=== PATIENT | male | born 1965 | race Caucasian/White ===

== ENCOUNTER 2024-10-11 12:58 | Inpatient (IN) ==
--- NOTE | 2024-10-11 14:28 | Emergency Department Note ---
ED Provider Note History of Present Illness Chief Complaint: Dental/Oral Stated Complaint: ABSCESS TOOTH Time Seen by Provider: 10/11/24 13:50 59-year-old male who presents the emergency department with complaint of a dental infection. The patient reports that he has been dealing with pain from an impacted wisdom tooth for the past 2-1/2 weeks. He was seen this past weekend at the [facility] emergency department and had the "tooth cracked" with significant pus drainage. The patient reports that he was not admitted to their facility, and discharged with prescription for clindamycin. The patient reports that prior to his ER visit, he contacted and set up an appointment for Dr. Morales, who saw him yesterday in his office, and recommended that he come to the emergency department last evening for further imaging. The patient reports that he had other issues that he had to attend to last night, and presents today for further evaluation. The patient denies any fever or chills. He reports that it feels like the swelling is going into his neck, but denies any difficulty with swallowing. The patient reports that he is taking clindamycin 4 times daily as prescribed this past weekend. He currently rates his discomfort a 7 out of 10. Home Medications Medication Instructions Recorded Confirmed Type apixaban 5 mg tablet (Eliquis) 5 mg PO BID 10/10/24 10/11/24 History clopidogrel 75 mg tablet (Plavix) 75 mg PO DAILY 10/10/24 10/11/24 History dulaglutide 1.5 mg/0.5 mL 1.5 mg subcut WK 10/10/24 10/11/24 History subcutaneous pen injector (Trulicity) metformin 1,000 mg tablet 1,000 mg PO DAILY 10/10/24 10/11/24 History metoprolol succinate 25 mg 25 mg PO DAILY 10/10/24 10/11/24 History tablet,extended release 24 hr metronidazole 0.75 % topical gel 1 applic topical BID 10/10/24 10/11/24 History isosorbide mononitrate 30 mg 30 mg PO DAILY 10/11/24 10/11/24 History tablet,extended release 24 hr levothyroxine 200 mcg tablet 200 mcg PO QAM 10/11/24 10/11/24 History rosuvastatin 40 mg tablet 40 mg PO DAILY 10/11/24 10/11/24 History tamsulosin 0.4 mg capsule 0.4 mg PO DAILY 10/11/24 10/11/24 History valsartan 80 mg tablet 80 mg PO QAM 10/11/24 10/11/24 History Allergies Allergy/AdvReac Type Severity Reaction Status Date / Time ciprofloxacin Allergy Intermediate Hives Verified 10/10/24 09:46 codeine Allergy Intermediate Hives Verified 10/10/24 09:46 Penicillins Allergy Intermediate Hives Verified 10/10/24 09:46 latex Allergy Verified 10/10/24 09:13 promethazine AdvReac EXTREME Verified 10/10/24 09:13 FATIGUE- SLEPT FOR 3 DAYS Past Med/Surg History Problem List (Updated 10/11/24 @ 21:54 by Alejandro Mejía) Parotid abscess (Acute) Dental abscess (Acute) Anticoagulant long-term use Dental abscess Impacted teeth with abnormal position Parotid abscess Edentulism, complete Acute abscess of face BPH (benign prostatic hyperplasia) GERD (gastroesophageal reflux disease) Paroxysmal A-fib Coronary artery disease Hypothyroidism Hyperlipidemia Diabetes type 2 COPD (chronic obstructive pulmonary disease) Sleep apnea Hypertension Pain, dental Medical History Dental caries Thyroid disease Seizures Diabetes Cleft palate Heart attack Heart disease Asthma Surgical History Hx of hernia repair History of repair of congenital cleft palate Hx of heart artery stent x3 Family History Mother Breast cancer Hypertension Social History Smoking Status: Current every day smoker Tobacco Type: Cigarettes Age Started Using Tobacco: 15; Cigarettes Per Day: 1.5 packs; Preferred Language: Moroccan marital status: Single Current Living Situation: Significant Other current occupational status: employed current occupation: [employer] How many Children do You have: 1 Feels Safe at Home: Yes Diet: diabetic during the past year weight has: decreased > 10 lbs Assistive Devices: Glasses Physical Exam Vital Signs Vital Signs - 24 hr 10/11/24 13:18 10/11/24 14:53 Temperature 36.6 C Temperature Source Skin Pulse Rate 82 Pulse Rate [Finger] 71 Respiratory Rate 19 20 Respiratory Effort / Characteristics Non-Labored Spontaneous Non-Labored Spontaneous Respiratory Depth Normal Normal Respiratory Pattern Regular Blood Pressure 150/98 H Blood Pressure [Right Arm] 173/100 H Blood Pressure Mean 115 Blood Pressure Mean [Right Arm] 124 Pulse Oximetry 97 98 Oxygen Delivery Method Room Air Room Air Sepsis Recent Fever Within 48 Hours No Sepsis New/Unexplained Change in Mental Status N/A Sepsis Action Taken by Nursing No Action Required CONSTITUTIONAL: Healthy and well nourished. Patient does not appear in any acute distress. HEENT: Examination shows notable left facial edema about the left mandible region. Oropharyngeal examination does not show any obvious pointing or fluctuance. No evidence for Raoul's angina or retropharyngeal abscess. NECK: Minimal tenderness to palpation of the through the left submandibular region, without any induration or erythema extending onto the neck. LYMPHATICS: Mild submandibular and left cervical chain adenopathy. RESPIRATORY: Clear to auscultation bilaterally with no wheezing, crackles, rhonchi or stridor. CARDIOVASCULAR: Regular rate and rhythm with no murmurs, rubs or gallops. INTEGUMENTARY: No rash or other significant dermatologic conditions noted. HEMATOLOGIC: No ecchymosis or petechiae. PSYCHIATRIC: Positive affect. NEUROLOGIC: Facial sensations are intact. Course Course Patient history and physical exam were performed. Nursing notes were reviewed. Vital signs are reviewed, showing an elevated blood pressure. IV access was established, and labs are ordered and drawn. Patient was hydrated with a normal saline 500 cc bolus. He refused any analgesics. Review of labs shows a relatively normal CBC. CMP shows an elevated random glucose of 130, otherwise remaining electrolytes are normal. Patient does have an elevated PT and PTT with normal INR. Sed rate is also elevated. CT with IV contrast of the neck shows a large abscess within the left career resource technician space, with additional findings as discussed in the following radiologist report. Prior to the patient's workup being completed, I was advised by our ER marketing secretary that Dr. Morales called in earlier and wanted the patient admitted by the hospitalist service, and consult him for possible I&D procedure pending CT imaging. I then reached out to our [employer], as well as the [facility] hospitalist team (Dr. Baker). Please see the hospitalist and maxillofacial dictations for further treatment and final disposition. The patient was admitted in stable condition from our service. Administered Medications Hydromorphone HCl (Hydromorphone Inj 0.5 Mg/0.5 Ml Syr) 0.5 mg IV Q4H PRN PRN Reason: Mod-Sev Pain (Scale 4-10) Stop: 10/25/24 17:59 Last Admin: 10/11/24 19:10 Dose: 0.5 mg Documented By: JARON Heparin Sodium/Dextrose (Heparin 28089 Unit/500 Ml D5w) 25,000 units in 500 mls @ 28 mls/hr IV .[id number] [facility]; Protocol Stop: 10/12/24 05:00 Last Admin: 10/11/24 19:54 Dose: 1,400 units/hr, 28 mls/hr Documented By: ELIJAH Co-signed By: PAULA Lactated Ringer's (Lr) 1,000 mls @ 50 mls/hr IV .Q20H ONE Stop: 10/12/24 14:22 Last Admin: 10/11/24 19:53 Dose: 50 mls/hr Documented By: ELIJAH Insulin Aspart (Insulin Aspart Per Unit Charge) 0 units SC ACHS [facility] Stop: 11/10/24 18:59 Last Admin: 10/11/24 21:22 Dose: Not Given Documented By: ELIJAH Co-signed By: MPS Discontinued Medications Clindamycin Phosphate (Cleocin/D5w) 900 mg in 50 mls @ 100 mls/hr IV NOW ONE Stop: 10/11/24 14:45 Last Infusion: 10/11/24 15:23 Dose: Infused Documented By: Admin: 10/11/24 14:53 Dose: 100 mls/hr Documented By: KENTON Sodium Chloride (Nss) 500 mls @ 999 mls/hr IV .Q31M ONE Stop: 10/11/24 14:48 Last Infusion: 10/11/24 19:17 Dose: Infused Documented By: Admin: 10/11/24 14:52 Dose: 999 mls/hr Documented By: KENTON Ioversol (Optiray 320 100ml) 90 ml IV ONCE ONE Stop: 10/11/24 15:49 Last Admin: 10/11/24 15:48 Dose: 90 ml Documented By: LESLIE Morphine Sulfate (Morphine Sulfate 4 Mg/Ml 1 Ml Carp\\Vial) 4 mg IV NOW STA Stop: 10/11/24 15:25 Last Admin: 10/11/24 15:30 Dose: 4 mg Documented By: ABIGAIL Ondansetron HCl (Ondansetron Inj 2 Mg/Ml 2 Ml Vial) 4 mg IV NOW STA Stop: 10/11/24 15:25 Last Admin: 10/11/24 15:30 Dose: 4 mg Documented By: ABIGAIL Medical Decision Making Medical Records Attestation: I reviewed the patient's medical records. Home Medications was personally reviewed by me Laboratory Data Attestation: I reviewed the patient's lab results. 10/11/24 14:30 10/11/24 14:30 Lab Results 10/11/24 Range/Units 14:30 WBC 6.90 (4.8-10.8) K/ul RBC 4.74 (4.70-6.10) M/uL Hgb 13.8 L (14.0-18.0) g/dl Hct 39.5 L (42.0-52.0) % MCV 83.3 (80.0-100.0) fL MCH 29.1 (25.0-34.0) pg MCHC 34.9 (32.0-36.0) g/dL RDW Std Deviation 37.5 (36.4-46.3) fL RDW Coeff of Mai 12.3 (11.5-14.5) % Plt Count 232 (130-400) K/uL MPV 8.9 L (9.4-12.4) fL Immature Gran % (Auto) 0.3 % Neut % (Auto) 66.2 % Lymph % (Auto) 25.7 % [place] % (Auto) 6.4 % Eos % (Auto) 1.0 % Baso % (Auto) 0.4 % Neut # (Auto) 4.57 (1.40-6.50) K/uL Lymph # (Auto) 1.77 (1.20-3.40) K/uL [place] # (Auto) 0.44 (0.11-0.59) K/uL Eos # (Auto) 0.07 (0.00-0.50) K/uL Baso # (Auto) 0.03 (0.00-0.20) K/uL Immature Gran # (Auto) 0.02 (0.01-0.20) K/uL ESR 67 H (0-20) mm/hr Sodium 138 (136-145) mmol/L Potassium 3.5 (3.5-5.1) mmol/L Chloride 101 (98-107) mmol/L Carbon Dioxide 31 (21-32) mmol/L Anion Gap 6 (3-11) BUN 11 (6-23) mg/dl Creatinine 0.92 (0.6-1.4) mg/dl Est Cr Clr Drug Dosing 97.5 ml/min eGFR 97.02 BUN/Creatinine Ratio 12.0 (10-20) Glucose 130 H (70-99(Fasting)) mg/dl Calcium 9.9 (8.6-10.3) mg/dl Total Bilirubin 0.6 (0.2-1.0) mg/dl AST 19 (13-39) U/L ALT 11 (7-52) U/L Alkaline Phosphatase 78 (34-104) U/L Total Protein 8.5 H (6.0-8.3) gm/dl Albumin 4.1 (3.4-5.0) gm/dl Globulin 4.4 H (2.5-4.0) gm/dl Albumin/Globulin Ratio 0.9 (0.9-2) Imaging Data Attestation: I personally reviewed and interpreted this imaging study as follows: My Impression: My interpretation of a CT with IV contrast of the neck shows a large abscess within the left career resource technician space. Additional findings were also discussed in the following radiologist report, which was also reviewed with concurrence. Radiologist's Impression: Soft Tissue Neck CT 10/11/24 14:16 CT soft tissue neck w con HISTORY: 59 years-old Male L mandibular abscess soft tissue swelling with possible abscess within the left mandibular tissues COMPARISON: Head CT 09/25/2024 TECHNIQUE: Multiple axial CT images of the soft tissues of the neck were obtained with IV contrast. A dose lowering technique was used consistent with the principals of ALARA. FINDINGS: The imaged intracranial structures demonstrate no acute abnormality. Orbits are within normal limits. Atherosclerotic plaque of the carotid bulbs without high- grade stenosis. Chronic appearing deformities of the perinasal tissues, nasal septum and maxilla. Unerupted left mandibular molar with probable adjacent dentigerous cyst with areas of adjacent cortical dehiscence both medially and laterally. There is an additional unerupted right maxillary tooth on image 24 series 2. This also demonstrates adjacent dentigerous cyst formation. Asymmetric enlargement with heterogeneity of the left cemented glenoid with adjacent inflammatory stranding. No thyroid nodule identified. Cervical chain lymph nodes measure up to 8 mm. There is a 3.7 x 2.4 x 5.4 cm heterogeneously enhancing focus centered within the left parotid gland on image 33 series 2 with centrally hypodense components measuring up to approximately 2 cm. The medial margin abuts the adjacent mandible and there is adjacent inflammatory stranding involving the left parotid gland and career resource technician space. The lung apices appear clear. Multilevel degenerative changes of the cervical spine. Diffusely heterogeneous appearance of the bone marrow. Small right mastoid effusion. The left mastoid air cells are clear. No significant mucosal thickening of the paranasal sinuses. IMPRESSION: 1. Heterogeneous masslike enhancement centered within the left career resource technician space and parotid gland measures up to approximately 5 cm with central hypodense foci measuring up to approximately 2 cm. Findings favor phlegmon with central abscess however a centrally necrotic neoplasm could appear similarly. 2. The aforementioned collection/lesion abuts the lateral cortex of the mandibular body where there is in an unerupted maxillary molar with dentigerous cyst and adjacent cortical dehiscence. Findings should be correlated clinically to exclude developing osteomyelitis. 3. Reactive left parotid and submandibular sialoadenitis with subcentimeter cervical chain lymph nodes. ACT 112: Negative or not required by law. The above report was generated using voice recognition software. It may contain grammatical, syntax or spelling errors. Electronically signed by: Leobardo Arguello M.D. 10/11/2024 4:15 PM MDM Narrative See ED Course section for further details of today's visit. The patient presents for evaluation of left facial swelling and infection. The patient was seen yesterday by Dr. Morales, maxillofacial surgeon, who recommended that he come in last evening for CT imaging and lab work. The patient has had an infection developing over the past 2-1/2 weeks, and appears to have had some type of I&D procedure this past weekend without admission. The patient is currently on clindamycin antibiotics without any significant improvement, and with what the patient reports is a worsening infection. CT imaging today does show a large abscess within the left career resource technician space, with additional erosive findings within the mandible as discussed at the previous radiologist report. The case was discussed with Dr. Morales, who has requested hospitalist admission for IV antibiotics, and he will perform operative management. The patient does appear to be stable at this point. Impression Dental abscess, Parotid abscess Discharge Plan Visit Data Chief Complaint: Dental/Oral Stated Complaint: ABSCESS TOOTH ED Provider: [facility] ED Midlevel Provider: Alejandro Mejía Discharge Problem: Dental abscess, Parotid abscess Patient Disposition: Admitted As Inpatient Discharge Instructions Interventions: ED Discharge Assessment Last Done: 10/11/24 17:35
--- NOTE | 2024-10-11 14:51 | History & Physical Report ---
Date of Service October 11, 2024 Assessment & Plan (1) Dental abscess: (2) Diabetes type 2: (3) Coronary artery disease: (4) Paroxysmal A-fib: (5) Hypertension: (6) Hyperlipidemia: (7) Hypothyroidism: (8) COPD (chronic obstructive pulmonary disease): (9) GERD (gastroesophageal reflux disease): (10) BPH (benign prostatic hyperplasia): (11) Sleep apnea: Plan 59 year old male with PMH significant for DMII, hyperlipidemia, hypothyroidism, COPD, TOM, CAD/peripheral vascular disease, history of CO x4 with stent x3, PAF, HTN, GERD, BPH, history of TIA who presents to the ED today with dental pain and is being admitted for probable I&D by Dr. Morales tomorrow. Dental abscess Patient seen by Dr. Morales yesterday outpatient CT neck soft tissues revealed: Heterogeneous masslike enhancement centered within the left plow holder space and parotid gland measures up to approximately 5 cm with central hypodense foci measuring up to approximately 2 cm. Findings favor phlegmon with central abscess however a centrally necrotic neoplasm could appear similarly. Labs without leukocytosis, ESR is 67 Pain control with IV tylenol and dilaudid Continue IV clindamycin Consult Dr. Morales for probable I&D tomorrow NPO and MIVF at 0000 Hold Eliquis and Plavix DMII On metformin and Trulicity at home - holding while inpt SSI while inpt CAD, hx CO x4 and stent x3 Hyperlipidemia Continue rosuvastatin Holding Plavix due to procedure tomorrow Paroxysmal A fib Continue metoprolol Holding Eliquis due to procedure tomorrow HTN Continue valsartan and imdur Hypothyroidism Continue levothyroxine GERD Continue pantoprazole BPH Continue tamsulosin DVT Prophylaxis: IV Heparin Code Status: FULL CODE - As per discussion at bedside with the patient. PCP: Elizabet Carranza PA-C Disposition: admit to med surg Patient seen in collaboration with Dr Baker. Please see addendum. I spent a total of 75 minutes coordinating, documenting and providing care for this patient excluding time spent in the performance of separately billed services or time spent by another provider/QHP. Admission and Anticipated Discharge Date Admission Date: 10/01/2024 History of Present Illness Chief Complaint: dental pain Primary Care Provider: Elizabet Carranza PA-C 59 year old male with PMH significant for DMII, hyperlipidemia, hypothyroidism, COPD, TOM, CAD/peripheral vascular disease, history of CO x4 with stent x3, PAF, HTN, GERD, BPH, history of TIA who presents to the ED today with dental pain. He was initially seen on 09/25 at [facility] ED for left sided jaw pain and underwent a CT scan which revealed an impacted wisdom tooth on the left for which he was prescribed clindamycin. He presented to his PCP on 10/02 and was prescribed oxycodone for pain management. He reports he tried 10mg of this on 10/08 when he was on the way to [facility] ED and it provided him no pain relief. He was transferred from [place] to [place] where he saw an oral surgeon who performed an I&D. He most recently saw Dr. Morales yesterday who recommended that the patient come to the ED last evening for further imaging but patient could not present until today. Patient reports persistent pain in his left jaw rated 8/10 in severity. The pain is not relieved by tylenol or oxycodone so he has not been taking anything. He reports that he has been taking the clindamycin for approximately 8 days - noting he didn't start it when it was first prescribed because his symptoms weren't that bad yet. He also reports that he has not taken his Eliquis or Plavix since 10/08 because he figured he was going t o be having a procedure in the near future. He endorses chills but has not taken his temperature to evaluate for fever and nausea which he attributes to clindamycin. He denies chest pain, SOB, abdominal pain, vomiting, diarrhea, fatigue, or weakness. He is able to eat food that is mashed up and drink without significant difficulty swallowing. Allergies Allergy/AdvReac Type Severity Reaction Status Date / Time ciprofloxacin Allergy Intermediate Hives Verified 10/10/24 09:46 codeine Allergy Intermediate Hives Verified 10/10/24 09:46 Penicillins Allergy Intermediate Hives Verified 10/10/24 09:46 latex Allergy Verified 10/10/24 09:13 promethazine AdvReac EXTREME Verified 10/10/24 09:13 FATIGUE- SLEPT FOR 3 DAYS Home Medications Medication Instructions Recorded Confirmed Type apixaban 5 mg tablet (Eliquis) 5 mg PO BID 10/10/24 10/11/24 History clopidogrel 75 mg tablet (Plavix) 75 mg PO DAILY 10/10/24 10/11/24 History dulaglutide 1.5 mg/0.5 mL 1.5 mg subcut WK 10/10/24 10/11/24 History subcutaneous pen injector (Trulicity) metformin 1,000 mg tablet 1,000 mg PO DAILY 10/10/24 10/11/24 History metoprolol succinate 25 mg 25 mg PO DAILY 10/10/24 10/11/24 History tablet,extended release 24 hr metronidazole 0.75 % topical gel 1 applic topical BID 10/10/24 10/11/24 History isosorbide mononitrate 30 mg 30 mg PO DAILY 10/11/24 10/11/24 History tablet,extended release 24 hr levothyroxine 200 mcg tablet 200 mcg PO QAM 10/11/24 10/11/24 History rosuvastatin 40 mg tablet 40 mg PO DAILY 10/11/24 10/11/24 History tamsulosin 0.4 mg capsule 0.4 mg PO DAILY 10/11/24 10/11/24 History valsartan 80 mg tablet 80 mg PO QAM 10/11/24 10/11/24 History Past Med/Surg History Problem List (Updated 10/11/24 @ 15:58 by ADRIANA Perales) Dental abscess BPH (benign prostatic hyperplasia) GERD (gastroesophageal reflux disease) Paroxysmal A-fib Coronary artery disease Hypothyroidism Hyperlipidemia Diabetes type 2 COPD (chronic obstructive pulmonary disease) Sleep apnea Hypertension Pain, dental Medical History (Updated 10/11/24 @ 15:58 by ADRIANA Perales) Dental caries Thyroid disease Seizures Diabetes Cleft palate Heart attack Heart disease Asthma Surgical History Hx of hernia repair History of repair of congenital cleft palate Hx of heart artery stent x3 Family History Mother Breast cancer Hypertension Social History (Updated 10/11/24 @ 15:58 by ADRIANA Perales) Smoking Status: Current every day smoker Tobacco Type: Cigarettes Age Started Using Tobacco: 15; Cigarettes Per Day: 1.5 packs; Preferred Language: Nigerian marital status: Single Current Living Situation: Significant Other current occupational status: employed current occupation: [employer] How many Children do You have: 1 Feels Safe at Home: Yes Diet: diabetic during the past year weight has: decreased > 10 lbs Assistive Devices: Glasses Review of Systems Review of Systems: All systems reviewed & are unremarkable except as noted in HPI & below Physical Exam Physical Exam: General/Psych: WD/WN, sitting up in bed, NAD, conversing easily, euthymic affect Head: normocephalic, atraumatic Eyes: normal inspection, PERRL, conjunctivae pink, anicteric sclerae ENT: external ear and nose normal, significant swelling and tenderness to the left jaw and face, unable to visualize inside mouth due to pain Neck: normal visual inspection, trachea midline, no thyromegaly Respiratory: normal respiratory effort, lungs clear to auscultation, no wheeze/rales/rhonchi, no accessory muscle use Cardiovascular: regular rate and rhythm, no murmur/rub/gallop, no JVD Extremities: no cyanosis or clubbing, normal peripheral pulses, no BLE edema Abdomen/GI: normal bowel sounds, soft, nontender, no hepatosplenomegaly Neurologic/MSK: A+Ox3, motor strength 5/5, moves all extremities Skin: no rashes, normal color, warm and dry Results & Data Results & Data Vital Signs (Past 12 Hours) Vital Signs Temp Pulse Resp BP Pulse Ox O2 Del Method 10/11/24 13:18 36.6 C 82 19 150/98 H 97 Room Air Laboratory Results Short CBC 10/11/24 Range/Units 14:30 WBC 6.90 (4.8-10.8) K/ul Hgb 13.8 L (14.0-18.0) g/dl Hct 39.5 L (42.0-52.0) % Plt Count 232 (130-400) K/uL BMP 10/11/24 14:30 Sodium 138 Potassium 3.5 Chloride 101 Carbon Dioxide 31 BUN 11 Creatinine 0.92 Glucose 130 H Calcium 9.9 Liver Function 10/11/24 Range/Units 14:30 Total Bilirubin 0.6 (0.2-1.0) mg/dl AST 19 (13-39) U/L ALT 11 (7-52) U/L Alkaline Phosphatase 78 (34-104) U/L Albumin 4.1 (3.4-5.0) gm/dl I have independently reviewed and interpreted patient's admitting labs including CBC and CMP Code Status & VTE Plan Code Status Full Code Supervising Physician Co-Signing Physician Notes Patient is a 59-year-old male with history of diabetes mellitus, COPD, TOM, peripheral vascular disease, CAD and other medical problems presents with history of worsening left jaw/dental pain. He was recently evaluated at [facility] and imaging studies showed impacted wisdom tooth on the left and he was placed on clindamycin. Patient was also evaluated at [facility] and was evaluated by oral surgeon who performed I&D. His symptoms continue to worsen. He admits to have poor oral intake/dysphagia secondary to worsening swelling and pain. He was evaluated by Dr. Morales yesterday who recommended him to come to ED for further management. Please review HPI for complete details of presentation. I personally reviewed blood work and imaging studies. CT neck showed heterogenous masslike enhancement within the left plow holder space and parotid gland measuring approximately 5 cm concern for developing abscess. Also noted bony involvement concerning for developing osteomyelitis. Physical Exam: Vitals signs as noted above General Appearance:Moderately built and nourished, no apparent distress Head: normocephalic, Atraumatic ,+ left jaw tenderness, swelling, some trismus Eyes: normal inspection, EOMI Neck: supple, Trachea midline Respiratory/Chest: Normal breath sounds, CTA, No accessory muscle use Cardiovascular: S1, S2, No murmur Abdomen/GI:Soft, Non tender, Bowel sounds present Extremities/Musculoskeletal:normal inspection, no edema Neurologic/Psych:AAOX3, grossly no focal neurological deficits Skin: normal color, warm Dental abscess Cannot rule out osteomyelitis H/O impacted wisdom tooth S/P I&D Pain control, IV fluids Advance diet as tolerated Continue IV clindamycin as above Oromaxillary surgery consulted Gentle IV fluids, n.p.o. after midnight Agree with holding Eliquis and Plavix for now Hypertensive urgency Likely situational secondary to pain Continue valsartan, metoprolol Also on Imdur IV labetalol as needed Paroxysmal atrial fibrillation CAD/ Stent H/O TIA We will hold Plavix IV heparin for now Request to hold IV heparin in a.m. for procedure I personally interviewed and examined the patient at bedside. I have reviewed the advanced practitioner's documentation on the date of service referred in note and agree with plan. Patient's care is coordinated with Caren WRIGHT. Please refer to the documentation above for details of patient's presentation and for discussion of other issues. I spent a total [id number] coordinating, documenting, and providing care for this patient excluding time spent in the performance of separately billed services or time spent by another provider/QHP.
[2024-10-11] MEDS: SODIUM CHLORIDE 0.9% 500 ML IV ONE (14:52)
[2024-10-11] MEDS: CLINDAMYCIN/D5W 900 MG/50 ML BAG IV ONE (14:53)
[2024-10-11 15:07] LABS: Basophils # (auto) 0.03 K/uL (0.00-0.20); Basophils % (auto) 0.4 %; Eosinophils # (auto) 0.07 K/uL (0.00-0.50); Hematocrit (blood only) 39.5 % (42.0-52.0); Hemoglobin 13.8 g/dl (14.0-18.0); Immature Granulocytes # (auto) 0.02 K/uL (0.01-0.20); Immature Granulocytes % (auto) 0.3 %; Lymphocytes # (auto) 1.77 K/uL (1.20-3.40); Lymphocytes % (auto) 25.7 %; Mean Corpuscular Hemoglobin 29.1 pg (25.0-34.0); Mean Corpuscular Hgb Conc 34.9 g/dL (32.0-36.0); Mean Corpuscular Volume 83.3 fL (80.0-100.0); Mean Platelet Volume 8.9 fL (9.4-12.4); Monocytes # (auto) 0.44 K/uL (0.11-0.59); Monocytes % (auto) 6.4 %; Neutrophils # (auto) 4.57 K/uL (1.40-6.50); Neutrophils % (auto) 66.2 %; Platelet Count 232 K/uL (130-400); RDW Coefficient of Variation 12.3 % (11.5-14.5); RDW Standard Deviation 37.5 fL (36.4-46.3); Red Blood Count 4.74 M/uL (4.70-6.10)
[2024-10-11 15:09] LABS: Albumin Globulin Ratio 0.9 (0.9-2); Albumin Level 4.1 gm/dl (3.4-5.0); Bilirubin,Total 0.6 mg/dl (0.2-1.0); Calcium 9.9 mg/dl (8.6-10.3); Creatinine Clr Calc Pharmacy 97.5 ml/min; Globulin 4.4 gm/dl (2.5-4.0); Potassium 3.5 mmol/L (3.5-5.1); Total Protein 8.5 gm/dl (6.0-8.3)
[2024-10-11] MEDS: ONDANSETRON INJ 2 MG/ML 2 ML VIAL IV STA (15:30)
[2024-10-11] MEDS: MoRPHine SULFATE 4 MG/ML 1 ML CARP\\VIAL IV STA (15:30)
[2024-10-11] MEDS: OPTIRAY 320 100ml IV ONE (15:48)
[2024-10-11] MEDS ORDERED: HYDROmorphone INJ 0.5 MG/0.5 ML SYR IV PRN ×2 (16:07→18:00)
[2024-10-11] MEDS ORDERED: Heparin IV Adult Wt-Based Standard *NO* INITIAL Bolus Protocol IV SCH (16:17)
--- NOTE | 2024-10-11 16:18 | CT Scan Report ---
CT soft tissue neck w con HISTORY: 59 years-old Male L mandibular abscess soft tissue swelling with possible abscess within th e left mandibular tissues COMPARISON: Head CT 09/25/2024 TECHNIQUE: Multiple axial CT images of the soft tissues of the neck were obtained with IV contrast. A dose lowering technique was used consistent with the principals of ALARA. FINDINGS: The imaged intracranial structures demonstrate no acute abnormality. Orbits are within normal limits. Atherosclerotic plaque of the carotid bulbs without high-grade stenosis. Chronic appearing deformiti es of the perinasal tissues, nasal septum and maxilla. Unerupted left mandibular molar with probable adjacent dentigerous cyst with areas of adjacent cortical dehiscence both medially and laterally. The re is an additional unerupted right maxillary tooth on image 24 series 2. This also demonstrates kelly cent dentigerous cyst formation. Asymmetric enlargement with heterogeneity of the left cemented glenoid with adjacent inflammatory str anding. No thyroid nodule identified. Cervical chain lymph nodes measure up to 8 mm. There is a 3.7 x 2.4 x 5.4 cm heterogeneously enhancing focus centered within the left parotid gland on image 33 seri es 2 with centrally hypodense components measuring up to approximately 2 cm. The medial margin abuts the adjacent mandible and there is adjacent inflammatory stranding involving the left parotid gland a nd point of sale associate space. The lung apices appear clear. Multilevel degenerative changes of the cervical spine. Diffusely hetero geneous appearance of the bone marrow. Small right mastoid effusion. The left mastoid air cells are c lear. No significant mucosal thickening of the paranasal sinuses. IMPRESSION: 1. Heterogeneous masslike enhancement centered within the left point of sale associate space and parotid gland glory sures up to approximately 5 cm with central hypodense foci measuring up to approximately 2 cm. Findin gs favor phlegmon with central abscess however a centrally necrotic neoplasm could appear similarly. 2. The aforementioned collection/lesion abuts the lateral cortex of the mandibular body where there i s in an unerupted maxillary molar with dentigerous cyst and adjacent cortical dehiscence. Findings sh ould be correlated clinically to exclude developing osteomyelitis. 3. Reactive left parotid and submandibular sialoadenitis with subcentimeter cervical chain lymph node s. ACT 112: Negative or not required by law. The above report was generated using voice recognition software. It may contain grammatical, syntax o r spelling errors. Electronically signed by: Leobardo Arguello M.D. 10/11/2024 4:15 PM
[2024-10-11] MEDS ORDERED: LABETALOL HCL IV 5 MG/ML 20ML IV PRN (18:09)
[2024-10-11] MEDS ORDERED: GLUCOSE 10 TAB/TUBE PO PRN (18:23)
[2024-10-11] MEDS ORDERED: GLUCOSE 40% GEL 15 GM TUBE PO PRN (18:23)
[2024-10-11] MEDS ORDERED: GLUCAGON FOR INJ 1 MG VIAL SQ PRN (18:23)
[2024-10-11] MEDS ORDERED: DEXTROSE 50% 50 ML SYRINGE IV PRN (18:23)
[2024-10-11] MEDS ORDERED: CARBOHYDRATES FOR HYPOGLYCEMIA PO PRN (18:23)
--- NOTE | 2024-10-11 18:29 | Oral/Maxillofacial Consult ---
Date of Consultation October 11, 2024 Assessment & Plan (1) Dental abscess: (2) Pain, dental: (3) Acute abscess of face: (4) Impacted teeth with abnormal position: (5) Edentulism, complete: (6) Parotid abscess: (7) Anticoagulant long-term use: History of Present Illness History of Present Illness Oral Maxillofacial Surgery Exam Present Complaint: I have pain/swelling/drainage from my infected wisdom teeth. Symptoms have been ongoing for a over 2 weeks getting more swollen Huy was referred to my office from the ER at [facility]. On Wednesday he went to [facility] as the left side facial swelling was getting worse. In the ER an I&D was preformed- he was told to follow up with me. I saw him on October 10 in my office and suggested he be admitted for IV antibiotics and eventfully for I&D with extraction of # 32 and ?# 1 as this area is also swollen. I reviewed his medical history. I reviewed the CT scan that was taken about 2 weeks ago and the most recent one this afternoon. The treatment plan is IV antibiotics, heat, then once medical clearance is obtained I will take to the OR for extroral I&D with removal of the infected # 1 and 32. Oral Exam: Huy in in a lot of pain and we need to set him up for the I&D tomorrow with the removal of the 1 and 32 infected wisdom teeth . Finding--Severe gross infection associated with the impacted teeth 32 and 1 , tender gingival tissue with deep pocket formation.Teeth are in an abnormal position and removal is clinical indicated. Significant [place] and Parotid swelling and abscess, submandibular infection, hard and firm, no drainage noted intraoral Imaging: The CT scan was reviewed, there were no abnormal findings other then the impacted/malposed wisdom teeth, radiolucent area associated with # 1 and 32 and the significant facial swelling. The TMJ are well positioned and no evidence of bony pathology. The sinus, supporting bone all WNL Evaluated the nerve/sinus relationship to the roots of the teeth. The following teeth were impacted # 1,32 Radiolucent areas surrounding # 1 and 32 Soft tissue: Extensive left side facial swelling Right upper posterior infection with radiolucent area and associated bone loss. The floor of the mouth, tongue, hard/soft palate, posterior pharyngeal area all with in normal limits, I&D site left posterior mandible no drainage present. Oral Care: No teeth present except for the infected impacted # 1 and 32 Occlusion: Edentulous TMJ exam: Limited ROM secondary to the infection Head/Neck exam: Neck is supple, FROM, Able to extend and flex neck with some difficulty seconda ry to the gross swelling. Infection and swelling left cheek, Parotid area, no airway issues. Treatment Plan: Will need to be admitted to the hospital for IV antibiotics, medical clearance Set up with general anesthesia in hospital due to complexity of the procedure Plan I&D tomorrow afternoon Removal of the infected impacted # 32 and # 1 I reviewed the treatment plan and consent with the patient. He can not be admitted today as he has to take care of some things hopefully soon. Understanding was expressed. Time was given for questions regarding the surgery, risks and post op care. Discussed alternative to treatment--procedure as planned, Do not do surgery. Failed out patinet treatment, Local I&D and oral antibiotics The wisdom teeth are impacted and in an abnormal position, removal is indicated and medically necessary.1 and 32 with associated radiolucent areas, I&D extraoral left side, debridement upper right maxillary area nd associated # 1 Must set up RICKY: Risks discussed: Bleeding,Pain,swelling,infection, dry socket, delayed healing, nerve injury to face,lips,tongue,chin area which could be permanent (rare).scaring, reoccurrence of infection, TMJ, jaw stiffness, change in bite (rare), ear pain (referred). Sinus problems like fistula or infection. Need to leave a small root fragment in place to avoid injury to nerve or sinus. Relationship of wisdom teeth to nerve/sinus and risk of jaw fracture. Need to follow up for possible pathology of the Parotid gland based on CT report or ? necrotic lesion vs infection ER notes 59 year old male with PMH significant for DMII, hyperlipidemia, hypothyroidism, COPD, TOM, CAD/peripheral vascular disease, history of PA x4 with stent x3, PAF, HTN, GERD, BPH, history of TIA who presents to the ED today with dental pain. He was initially seen on 09/25 at [facility] ED for left sided jaw pain and underwent a CT scan which revealed an impacted wisdom tooth on the left for which he was prescribed clindamycin. He presented to his PCP on 10/02 and was prescribed oxycodone for pain management. He reports he tried 10mg of this on 10/08 when he was on the way to [facility] ED and it provided him no pain relief. He was transferred from [place] to [place] where he saw an oral surgeon who performed an I&D. He most recently saw Dr. Morales yesterday who recommended that the patient come to the ED last evening for further imaging but patient could not present until today. Patient reports persistent pain in his left jaw rated 8/10 in severity. The pain is not relieved by tylenol or oxycodone so he has not been taking anything. He reports that he has been taking the clindamycin for approximately 8 days - noting he didn't start it when it was first prescribed because his symptoms weren't that bad yet. He also reports that he has not taken his Eliquis or Plavix since 10/08 because he figured he was going to be having a procedure in the near future. He endorses chills but has not taken his temperature to evaluate for fever and nausea which he attributes to clindamycin. He denies chest pain, SOB, abdominal pain, vomiting, diarrhea, fatigue, or weakness. He is able to eat food that is mashed up and drink without significant difficulty swallowing. Allergies Allergy/AdvReac Type Severity Reaction Status Date / Time ciprofloxacin Allergy Intermediate Hives Verified 10/10/24 09:46 codeine Allergy Intermediate Hives Verified 10/10/24 09:46 Penicillins Allergy Intermediate Hives Verified 10/10/24 09:46 latex Allergy Verified 10/10/24 09:13 promethazine AdvReac EXTREME Verified 10/10/24 09:13 FATIGUE- SLEPT FOR 3 DAYS Home Medications Medication Instructions Recorded Confirmed Type apixaban 5 mg tablet (Eliquis) 5 mg PO BID 10/10/24 10/11/24 History clopidogrel 75 mg tablet (Plavix) 75 mg PO DAILY 10/10/24 10/11/24 History dulaglutide 1.5 mg/0.5 mL 1.5 mg subcut WK 10/10/24 10/11/24 History subcutaneous pen injector (Trulicity) metformin 1,000 mg tablet 1,000 mg PO DAILY 10/10/24 10/11/24 History metoprolol succinate 25 mg 25 mg PO DAILY 10/10/24 10/11/24 History tablet,extended release 24 hr metronidazole 0.75 % topical gel 1 applic topical BID 10/10/24 10/11/24 History isosorbide mononitrate 30 mg 30 mg PO DAILY 10/11/24 10/11/24 History tablet,extended release 24 hr levothyroxine 200 mcg tablet 200 mcg PO QAM 10/11/24 10/11/24 History rosuvastatin 40 mg tablet 40 mg PO DAILY 10/11/24 10/11/24 History tamsulosin 0.4 mg capsule 0.4 mg PO DAILY 10/11/24 10/11/24 History valsartan 80 mg tablet 80 mg PO QAM 10/11/24 10/11/24 History Patient History Medical History Dental caries Thyroid disease Seizures Diabetes Cleft palate Heart attack Heart disease Asthma Surgical History Hx of hernia repair History of repair of congenital cleft palate Hx of heart artery stent x3 Family History Mother Breast cancer Hypertension Social History Smoking Status: Current every day smoker Tobacco Type: Cigarettes Age Started Using Tobacco: 15; Cigarettes Per Day: 1.5 packs; Preferred Language: Hebrew marital status: Single Current Living Situation: Significant Other current occupational status: employed current occupation: [employer] How many Children do You have: 1 Feels Safe at Home: Yes Diet: diabetic during the past year weight has: decreased > 10 lbs Assistive Devices: Glasses Results & Data Vital Signs (Past 12 Hours) Vital Signs Temp Pulse Pulse Resp BP BP Pulse Ox 10/11/24 17:35 71 16 155/105 H 97 10/11/24 14:53 71 20 173/100 H 98 10/11/24 13:18 36.6 C 82 19 150/98 H 97 O2 Del Method 10/11/24 17:35 Room Air 10/11/24 14:53 Room Air 10/11/24 13:18 Room Air PG Care Time/CCT Total # of Minutes Spent Total Time Spent with Patient: Total time spent is greater than 50% in coordination of care (as documented) at patient's floor/unit and/or counseling patient: Coding Level of Care Code 79662 IN/OBS CONSULT LVL 3,45M Diagnoses Dental abscess K04.7 Pain, dental K08.89 Acute abscess of face L02.01 Impacted teeth with abnormal position K01.1 Complete edentulism, class IV K08.104 Tooth loss class: class IV tooth loss Parotid abscess K11.3 Anticoagulant long-term use Z79.01 (5) Edentulism, complete Tooth loss class: class IV tooth loss Qualified Code(s): K08.104 - Complete loss of teeth, unspecified cause, class IV
[2024-10-11] MEDS ORDERED: cloNIDine HCL 0.1 MG TAB PO PRN (18:59)
[2024-10-11] MEDS: HYDROmorphone INJ 0.5 MG/0.5 ML SYR IV PRN (19:10)
[2024-10-11 19:27] LABS: INR 1.1 (0.9-1.1); Partial Thromboplastin Ratio 1.3; Partial Thromboplastin Time 34 Seconds (21-31); Prothrombin Time 12.1 Seconds (9.0-12.0)
[2024-10-11] MEDS: LACTATED RINGER'S 1,000 ML IV ONE (19:53)
[2024-10-11] MEDS: HEPARIN 25000 UNIT/500 ML D5W 25,000 UNITS/500 ML BAG IV SCH (19:54)
[2024-10-11] MEDS: INSULIN ASPART PER UNIT CHARGE SC SCH (21:22)
[2024-10-11] MEDS: CLINDAMYCIN/D5W 900 MG/50 ML BAG IV SCH (23:02)
[2024-10-11] MEDS: CHLORHEXIDINE GLUCONATE 0.12% 480 ML MT PRN (23:08)
--- OUTSIDE RECORDS SUMMARY | 2024-10-12 00:20 | External Medical Summary | Summary of Care ---
Author Name Unknown Organization [facility] Address [address] [place] [address] Phone [phone] Care Team Providers Care Forklift Driver Name Role Phone Elizabet Carranza PA-C Primary Care Provider [phone] Reason for Visit * Reason Comments eRx-Medication Refill Encounter Details Date Type Department Care Team ([facility] st Contact Info) Description 10/10/2024 Refill [facility] [address] [place] [address] Phoenix Carrillo, DO [address] [place] [address] Paroxysmal atrial fibrillation (HCC) Allergies Active Allergy Reactions Criticality Noted Date Comments Ciprofloxacin Anaphylaxis High 05/12/2022 Given thru IV Codeine Rash 02/13/2014 Other Reaction(s): hives Latex Wheezing 08/20/2023 Other Reaction(s): Sneezing Penicillins Rash,Hives High 05/09/2001 Rash as a child Other Reaction(s): Hives Phenothiazines Other (Please comment) 4 Phenergan-- Excessive sleeping Promethazine 08/20/2023 Other Reaction(s): " Slept for 3 days" documented as of this encounter (statuses as of 10/11/2024) Medications nitroglycerin (NITROSTAT) 0.[address] 1 Tab under the tongue every 5 minutes as needed for Pain, Chest. As directed. 25 Tab 5 12/27/19 20 Active ProAir HFA 108 (90 Base) MCG/ACT Inhalation Aerosol SolutionIndicat ions:COPD, severity to be determined ([facility]) 2 puffs 4 times a day as needed 8 g 1 09/10/19 23 Active Pantoprazole Sodium 40 MG Oral Tablet Delayed Release (Protonix) Take 1 Tablet by mouth in the morning. 01/28/20 23 Active Rosuvastatin Calcium 40 MG Oral Tablet (Crestor)Indica tions:Hyperlipi demia associated with type 2 diabetes mellitus (HCC) Take 1 Tablet by mouth in the morning. 04/08/20 23 Active Systane 0.4-0.3 % Ophthalmic Solution (Artificial Tears) Instill into both eyes as needed for Dry eyes. Active Ketoconazole 2 % External Cream Apply to apply to the ears twice daily as needed 30 g 2 09/08/19 24 Active Additional Information Patient not taking.Reported on 10/02/2024 metroNIDAZOLE 0.75 % External Cream (MetroCream) Apply to the face twice daily as needed 45 g 2 09/08/19 24 Active Additional Information Patient not taking.Reported on 10/02/2024 Cyclobenzaprine HCl 10 MG Oral Tablet (Flexeril)Indic ations:Left leg pain Take 1 Tablet by mouth 3 times a day as needed for Muscle spasms. 30 Tablet 1 01/26/20 24 Active Valsartan 80 MG Oral Tablet (Diovan)Indicat ions:Hypertensi on associated with type 2 diabetes mellitus (HCC) TAKE ONE TABLET BY MOUTH EVERY MORNING 90 Tablet 3 02/11/20 24 Active Tamsulosin HCl 0.4 MG Oral Capsule (Flomax)Indicat ions:Calculus of kidney TAKE ONE CAPSULE BY MOUTH EVERY MORNING 90 Capsule 3 03/02/20 24 Active Clopidogrel Bisulfate 75 MG Oral Tablet (pLAVix)Indicat ions:Coronary artery disease involving [place] coronary artery of [place] heart without angina pectoris TAKE ONE TABLET BY MOUTH EVERY MORNING 90 Tablet 1 06/27/19 25 Active Isosorbide Mononitrate ER 30 MG Oral Tablet Extended Release 24 Hour (Imdur)Indicati ons:Coronary artery disease involving [place] coronary artery of [place] heart without angina pectoris TAKE ONE TABLET BY MOUTH EVERY MORNING 90 Tablet 1 06/27/19 25 Active Metoprolol Succinate ER 25 MG Oral Tablet Extended Release 24 Hour (toPROL XL)Indications: Coronary artery disease involving [place] coronary artery of [place] heart without angina pectoris TAKE ONE TABLET BY MOUTH EVERY MORNING 90 Tablet 1 07/04/19 25 Active Dulaglutide 1.5 MG/0.5ML Subcutaneous Solution Auto-injector (Trulicity)Alissa cations:Type 2 diabetes mellitus with diabetic peripheral angiopathy without gangrene, without long-term current use of insulin (HCC) Inject 1.5 mg under the skin once a week. 2 mL 3 07/31/19 25 Active Levothyroxine Sodium 200 MCG Oral Tablet (Levoxyl) TAKE 1 TABLET by mouth ONE TIME DAILY except on Wednesday. at least 30 MINUTES prior to breakfast or other medicine 90 Tablet 3 09/23/19 25 Active Additional Information Patient taking differently: 200 mcg Oral [id number], (No instructions reported), Reported on 10/02/2024 oxyCODONE HCl 5 MG Oral Tablet (Oxy IR) Take 1 Tablet by mouth every 6 hours as needed for Pain, Severe. 09/28/19 25 Active metFORMIN HCl ER 500 MG Oral Tablet Extended Release 24 Hour (Glucophage XR)Indications: Type 2 diabetes mellitus with diabetic peripheral angiopathy without gangrene, without long-term current use of insulin (HCC) Take 2 Tablets by mouth in the morning. 180 Tablet 1 10/03/19 25 Active Chlorhexidine Gluconate 0.12 % Mouth/Throat Solution (Periogard) Swish and spit 15 mL in the morning and 15 mL before bedtime. 473 mL 10/10/19 25 Active Clindamycin HCl 300 MG Oral Capsule Take 1 Capsule by mouth in the morning and 1 Capsule at noon and 1 Capsule in the evening and 1 Capsule before bedtime. Do all this for 7 days. 28 Capsule 10/10/19 25 2024 Active Apixaban 5 MG Oral Tablet (Eliquis)Indica tions:Paroxysma l atrial fibrillation (HCC) TAKE 1 TABLET BY MOUTH TWICE DAILY (morning and bedtime) 180 Tablet 1 10/12/19 25 Active Apixaban 5 MG Oral Tablet (Eliquis)Indica tions:Paroxysma l atrial fibrillation (HCC) TAKE 1 TABLET BY MOUTH TWICE DAILY (morning and bedtime) 180 Tablet 1 04/19/20 24 2024 Discontinued documented as of this encounter (statuses as of 10/11/2024) Active Problems Problem Noted Date Diagnosed Date History of [place] (myocardial infarction) 07/04/2024 History of gastric ulcer 02/02/2024 History of TIA (transient ischemic attack) 02/01 Colon cancer screening 02/02/2024 continuous churn buttermaker current use of anticoagulant therapy 0 06/22/2023 Primary osteoarthritis involving multiple joints 10/29/2020 Paroxysmal atrial fibrillation 06/18/2020 Type 2 diabetes mellitus wit h diabetic peripheral angiopathy without gangrene 06/18/2020 Gastro-esophageal reflux disease without esophag itis 06/18/2020 Benign prostatic hyperplasia without lower urinary tract symptoms 06/18/2020 COPD, group B, by GOLD 2017 classification 02/19 Overview: Per COPD GOLD Classification Sleep apnea 10/31/2019 Peripheral vascular disease 08/01/2019 Essential hypertension 11/25/2018 Hyperlipidemia LDL goal <70 11/25/2018 Coronary artery disease invo lving [place] coronary artery without angina pectoris 01/16/2015 Acquired hypothyroidism 01/16/2015 S/P angioplasty with stent 08/10/2014 BMI 35-39 ISOLATED (SEE ACTUAL BMI) 11/25/2009 Overview (11/25/2009): Per Obesity Protocol, #19 Calculus of kidney 04/15/2008 Overview (01/16/2013): 01/15/13: recurrent renal calculus Tobacco use disorder documented as of this encounter (statuses as of 10/11/2024) Resolved Problems Problem Noted Date Diagnosed Date Resolved Date Hypokalemia 06/18/2020 09/18/2020 Hypertensive heart disease with heart failure 12/04/19 20 09/18/2020 Diabetes mellitus with peripheral angiopathy 0 09/18/2020 Food insecurity 10/24/2018 01/28/2021 Overview: Per [facility] Protocol Food insecurity 01/25/2018 09/27/2018 Overview: Per [facility] Protocol Diabetes mellitus 06/19/2015 07/04/2024 AZ, acute, non ST segment elevation 08/10/2014 01/16/2015 HYPOTHYROIDISM NOS 05/13/2005 5 ABNORMAL FUNCTION STUDY, THYROID 04/21/2005 01/13/2007 Overview (04/21/2005): elevated TSH ADVANCE DIRECTIVE INFORMATION 04/20/2005 06/22/2023 Overview (04/20/2005): No, Advance Directive brochure offered , patient declined. BILAT CLEFT PALATE-COMPL documented as of this encounter (statuses as of 10/11/2024) Immunizations Name Administration Dates Next Due COVID-19 mRNA, LNP-s, No Pre serve, 2-Dose Series (Moderna) 02/06/2021,01/09/2021 Seasonal Influenza Vac., MDV , IM, 0.5 mL (Fluzone) 03/28/2015,03/28/2014,03/28/2011 documented as of this encounter Social History Tobacco Use Types Packs/Day Years Used Date Smoking Tobacco: Every Day Cigarettes 1 40 Smokeless Tobacco: Never Alcohol Use Standard Drinks/Week Comments No 0 (1 standard drink = 0.6 oz pur e alcohol) PHQ-2 Answer Date Recorded PHQ Adult Total Score 0 07/04/2024 Hunger Vital Sign Answer Date Recorded Within the past 12 months, y ou worried that your food would run out before you got the money to buy more. Never true 07/04/19 25 Within the past 12 months, t he food you bought just didn't last and you didn't have money to get more. Never true 07/04/2024 Childcare Answer Date Recorded Do you feel overwhelmed with taking care of a child, family member or friend? No 07/04/2024 Does your family need help f inding childcare? (Household - for ages 0-17 years) Not on file 07/04/2024 Clothing Answer Date Recorded Have you been unable to get clothing when it was really needed? No 07/04/2024 Is your family able to get c lothes or diapers when needed? (Household - for ages 0-17 years) Not on file 07/04/2024 Personal Safety Answer Date Recorded Do you feel unsafe or have concerns for your saf ety? No 07/04/2024 Do you have concerns for you r family's safety? (Household - for ages 0-17 years) Not on file 07/04/2024 Utilities Answer Date Recorded Do you have trouble paying y our heating, water, or electric bill? No 07/04/2024 Is your family able to pay t he heat, water, or electric bill? (Household - for ages 0-17 years) Not on file 07/04/2024 Does your family have access to good internet? (Household - for ages 0-17 years) Not on file 07/04/2024 Employment Status Answer Date Recorded Are you unemployed or without regular income? No 07/04/2024 Does the household have a re lar source of income? (Household - for ages 0-17 years) Not on file 07/04/2024 Social Connections Answer Date Recorded How often do you feel lonely or isolated from th ose around you? Never 07/04/2024 Financial Resource Strain Answer Date R ecorded Do you have any trouble payi ng for your medications, or do you think you might in the future? No 07/04/2024 Does your family have troubl e paying for medicine? (Household - for ages 0-17 years) Not on file 07/04/2024 Transportation Needs Answer Date Record ed Do you have trouble getting a ride to medical visits or work? (Adult - for ages 18 years and over) Not on file 07/04/2024 Does your family have a hard time getting a ride to doctors visits? (Household - for ages 0-17 years) Not on file 07/04/2024 Has lack of transportation k ept you from medical appointments, meetings, work, or from getting things needed for daily living? Check all that apply. No 07/04/2024 Do you (or your family) have trouble finding or paying for a ride (transportation)? (Household - for ages 0-17 years) Not on file 07/04/2024 Housing Stability Answer Date Recorded Do you currently live in a s helter or have no steady place to sleep at night? No 07/04/2024 Do you think you are at risk of becoming homeless? (Adult - for ages 18 years and over) Not on file 07/04/2024 Does your family worry about paying for your home or becoming homeless? (Household - for ages 0-17 years) Not on file 0 07/04/2024 Are you homeless or worried that you might be in the future? No 07/04/2024 Are you (or your family) belem eless or worried that you might be in the future? (Household - for ages 0-17 years) Not on file Food Insecurity Answer Date Recorded Do you need food for this week? No 07/04/2024 Are you able to get enough f ood for your family? (Household - for ages 0-17 years) Not on file 07/04/2024 Does your family need food t his week? (Household - for ages 0-17 years) Not on file 07/04/2024 Do you always have enough fo od for your family? (Household - for ages 0-17 years) Not on file 07/04/2024 Food Insecurity Answer Date Recorded Within the past 12 months, y ou worried that your food would run out before you got the money to buy more. Never true 07/04/19 25 Within the past 12 months, t he food you bought just didn't last and you didn't have money to get more. Never true 07/04/2024 Do you need food for this week? 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 file Not on file Not on file Not on file Not on file Not on file Not on file documented as of this encounter Miscellaneous Notes * Telephone Encounter - Naomi You [facility] - 10/11/2024 11:13 AM EDT Signed Prescriptions: Disp Refills Apixaban 5 MG Oral Tablet (Eliquis) 180 Ta*1 Sig: TAKE 1 TABLET BY MOUTH TWICE DAILY (morning and bedtime)Authorizing Provider: PHOENIX CARRILLO User: NAOMI YOU documented in this encounter Plan of Treatment Upcoming Encounters Date Type Department Care Team ([facility] st Contact Info) Description 11/22/2024 3:00 PM EDT Office Visit Dermatology [address] [phone] Jeff Ponce PA-C [address] [place] [address] [phone] 01/02/2025 1:00 PM EDT Office Visit Pharmacy [address] [phone] Pharmacist2, [facility] [address] [phone] Health Maintenance Due Date Last Done Comments DISCUSS TOBACCO CESSATION (REFER TO SMARTSET #[id number]) 1965 Hepatitis B Vaccine (1 of 3 - 19+ 3-dose series) 1986 Pneumococcal Vaccine: 50+ Years (1 of 2 - PCV) 1986 DTap/Tdap Vaccines (1 - Tdap) 05/10/2001 05/09/2001 Cologuard 02/27/2012 Colonoscopy 02/27/2012 Colorectal Cancer Screening 02/27/2012 Fecal Occult Blood Test 02/27/2012 Sigmoidoscopy 02/27/2012 Zoster Vaccines (1 of 2) 2017 *COPD SEVERITY VERIFIED BY PFT 01/08/2020 COVID-19 Vaccine ( - season) 2024 02/06/2021, 01/09/2021 Lung Cancer Screening 09/05/2024 09/06/2023 , 08/27/2022, 08/20/2021 B-12 12/30/2024 12/31/2023, 0611/2022, 10/31/2021, Additional history exists Diabetic Foot Exam 01/25/2025 01/26/2024, 0 12/23/2022, 02/09/2022, Additional history exists Influenza Vaccine (FLU shot) (Season Ended) 2025 03/28/2015, 03/28/2014, 03/28/2011, Additional history exists HbA1c 03/28/2025 09/26/2024, 12/2024, 12/31/2023, Additional history exists Diabetic Eye Exam 05/15/2025 05/15/2024, , 01/17/2024, Additional history exists TSH 06/20/2025 06/20/2024, 12/12, 12/07/2022, Additional history exists Depression Screening 07/04/2025 07/04/2024 Albumin/Creatinine Ratio 09/26/2025 025, 12/07/2022, 01/15/2022, Additional history exists GFR 10/08/2025 10/08/2024, 12/2024, 12/31/2023, Additional history exists O2 ASSESSMENT COMPLETED IN PAST YEAR FOR COPD 10/09/2025 10/09/2024 Alpha-1 Antitrypsin Completed 12/07/2022 HPV (Gardasil) Vaccine Aged Out No lo nger eligible based on patient's age to complete this topic MENINGOCOCCAL (MENACTRA/MENVEO) Aged Out No longer eligible based on patient's age to complete this topic Meningitis B Vaccine (Bexsero/Trumemba) Aged Out No longer eligible based on patient's age to complete this topic documented as of this encounter Medical Devices Not on filedocumented as of this encounter Visit Diagnoses Diagnosis Paroxysmal atrial fibrillation (HCC) Atrial fibrillation documented in this encounter Advance Directives * Full Code (Latest Code Status on File) Date Activated Date Inactivated Comments 09/20/2018 10:57 AM 09/20/2018 12:50 PM This order r eflects the patients wishes and were consensually agreed upon. Question Answer Comments Discussion of Advance Directives occurred with: Patient Does the patient have a Living Will? No Does the patient have Health Care Power of Attor angela? No Care Teams Forklift Driver Relationship Specialty Start Date End Date Elizabet Carranza PA-C [address] [place] [id number] PCP - General Physician Oriental Medicine Practitioner 05/05/24 documented as of this encounter
[2024-10-12] MEDS ORDERED: Nursing to Pharmacy Communication SCH ×3 (01:30→20:30)
[2024-10-12] MEDS: ACETAMINOPHEN 1,000 MG/100 ML VIAL IV PRN (01:52)
[2024-10-12 03:13] LABS: ANTI-Xa, UFH(UnfractionatedHep 0.31 IU/ml (0.3-0.7)
[2024-10-12] MEDS: LEVOTHYROXINE SODIUM 200 MCG TABLET PO SCH (06:09)
[2024-10-12] MEDS: INSULIN ASPART PER UNIT CHARGE SC SCH ×2 (06:14→20:27)
[2024-10-12 08:07] LABS: Hematocrit (blood only) 34.9 % (42.0-52.0); Hemoglobin 12.1 g/dl (14.0-18.0); Mean Corpuscular Hemoglobin 29.1 pg (25.0-34.0); Mean Corpuscular Hgb Conc 34.7 g/dL (32.0-36.0); Mean Corpuscular Volume 83.9 fL (80.0-100.0); Mean Platelet Volume 8.8 fL (9.4-12.4); Platelet Count 196 K/uL (130-400); RDW Coefficient of Variation 12.1 % (11.5-14.5); Red Blood Count 4.16 M/uL (4.70-6.10); White Blood Count 5.52 K/ul (4.8-10.8)
[2024-10-12 08:28] LABS: BUN Creatinine Ratio 9.1 (10-20); Calcium 9.3 mg/dl (8.6-10.3); Creatinine Clr Calc Pharmacy 90.6 ml/min; Potassium 3.7 mmol/L (3.5-5.1)
[2024-10-12 08:33] LABS: ANTI-Xa, UFH(UnfractionatedHep < 0.10 IU/ml (0.3-0.7)
[2024-10-12] MEDS: METOPROLOL SUCC 25MG EXT REL TAB PO SCH (09:44)
[2024-10-12] MEDS: VALSARTAN 80 MG TAB PO SCH (09:45)
[2024-10-12] MEDS: ROSUVASTATIN CALCIUM 20 MG TAB PO SCH (09:45)
[2024-10-12] MEDS: ISOSORBIDE MONO EXTENDED REL 30 MG TABCR PO SCH (09:45)
[2024-10-12] MEDS: TAMSULOSIN HCL 0.4 MG CAP PO SCH (09:45)
--- NOTE | 2024-10-12 13:17 | History & Physical Bridge Note ---
Date of Service October 12, 2024 History & Physical Bridge Note I have examined the patient, reviewed the History & Physical and in the interval since the performance of the History & Physical I have noted the following changes of clinical significance: no changes noted OK for the planned surgery I&D and removal of # 1 and # 17
[2024-10-12] MEDS ORDERED: ATROPINE SULFATE 0.1 MG/ML 10ML SYR IV PRN (13:19)
[2024-10-12] MEDS ORDERED: ePHEDrine sulfate 50 MG/ML AMP IV PRN (13:19)
--- NOTE | 2024-10-12 13:19 | Anesthesiology Consultation ---
Date of Service October 12, 2024 Assessment & Plan Chart Review Chart Review: Acceptable Risk for Surgery and Patient NOT seen in Pre Admission Testing Consults Requested none History Surgery Operation Date: 10/12/24 08:50 Proposed Procedures p Extra Oral Incision and Drainage Left Side - Shadi Morales DMD s Extraction 1 and 32 - Shadi Morales DMD Height/Weight Height: 5 ft 7 in Weight: 95.4 kg Allergies Allergy/AdvReac Type Severity Reaction Status Date / Time ciprofloxacin Allergy Intermediate Hives Verified 10/10/24 09:46 codeine Allergy Intermediate Hives Verified 10/10/24 09:46 Penicillins Allergy Intermediate Hives Verified 10/10/24 09:46 latex Allergy Verified 10/10/24 09:13 promethazine AdvReac EXTREME Verified 10/10/24 09:13 FATIGUE- SLEPT FOR 3 DAYS Medications Home Medications Medication Instructions Recorded Confirmed Last Taken apixaban 5 mg tablet (Eliquis) 5 mg PO BID 10/10/24 10/11/24 Unknown clopidogrel 75 mg tablet (Plavix) 75 mg PO DAILY 10/10/24 10/11/24 Unknown dulaglutide 1.5 mg/0.5 mL 1.5 mg subcut WK 10/10/24 10/11/24 Unknown subcutaneous pen injector (Trulicity) metformin 1,000 mg tablet 1,000 mg PO DAILY 10/10/24 10/11/24 Unknown metoprolol succinate 25 mg 25 mg PO DAILY 10/10/24 10/11/24 Unknown tablet,extended release 24 hr metronidazole 0.75 % topical gel 1 applic topical BID 10/10/24 10/11/24 Unknown isosorbide mononitrate 30 mg 30 mg PO DAILY 10/11/24 10/11/24 Unknown tablet,extended release 24 hr levothyroxine 200 mcg tablet 200 mcg PO QAM 10/11/24 10/11/24 Unknown rosuvastatin 40 mg tablet 40 mg PO DAILY 10/11/24 10/11/24 Unknown tamsulosin 0.4 mg capsule 0.4 mg PO DAILY 10/11/24 10/11/24 Unknown valsartan 80 mg tablet 80 mg PO QAM 10/11/24 10/11/24 Unknown Active Medications Generic Name Dose Route Start Last Admin Trade Name Freq PRN Reason Stop Dose Admin Chlorhexidine Gluconate 15 ml 10/11/24 19:27 10/12/24 10:55 Chlorhexidine Gluconate 0.12% 480 Ml MT 11/10/24 19:26 15 ml BID PRN Administration Prophylaxis Hydromorphone HCl 0.5 mg 10/11/24 18:10 10/12/24 11:47 Hydromorphone Inj 0.5 Mg/0.5 Ml Syr IV 10/25/24 17:59 0.5 mg Q4H PRN Administration Mod-Sev Pain (Scale 4-10) Acetaminophen 1,000 mg in 100 mls @ 400 mls/hr 10/11/24 16:07 10/12/24 02:15 Ofirmev IV 10/14/24 16:06 Infused Q8H PRN Infusion Mild Pain (Scale 1, 2, 3) Clindamycin Phosphate 900 mg in 50 mls @ 100 mls/hr 10/11/24 23:00 10/12/24 10:11 Cleocin/D5w IV 10/18/24 22:59 Infused Q8H KELLY Infusion Lactated Ringer's 1,000 mls @ 50 mls/hr 10/11/24 18:23 10/11/24 19:53 Lr IV 10/12/24 14:22 50 mls/hr .Q20H ONE Administration Insulin Aspart 0 units 10/12/24 06:00 10/12/24 06:14 Insulin Aspart Per Unit Charge SC 11/11/24 05:59 Not Given Q6 KELLY Isosorbide Mononitrate 30 mg 10/12/24 09:00 10/12/24 09:45 Isosorbide [place] Extended Rel 30 Mg Tabcr PO 11/11/24 08:59 30 mg DAILY KELLY Administration Levothyroxine Sodium 200 mcg 10/12/24 06:30 10/12/24 06:09 Levothyroxine Sodium 200 Mcg Tablet PO 11/11/24 06:29 200 mcg DAILYBB KELLY Administration Metoprolol Succinate 25 mg 10/12/24 09:00 10/12/24 09:44 Metoprolol Succ 25mg Ext Rel Tab PO 11/11/24 08:59 Not Given DAILY KELLY Rosuvastatin Calcium 40 mg 10/12/24 09:00 10/12/24 09:45 Rosuvastatin Calcium 20 Mg Tab PO 11/11/24 08:59 40 mg DAILY KELLY Administration Tamsulosin HCl 0.4 mg 10/12/24 09:00 10/12/24 09:45 Tamsulosin Hcl 0.4 Mg Cap PO 11/11/24 08:59 0.4 mg DAILY KELLY Administration Valsartan 80 mg 10/12/24 09:00 10/12/24 09:45 Valsartan 80 Mg Tab PO 11/11/24 08:59 80 mg QAM KELLY Administration NPO Date Last Intake of Fluids: 10/12/24 Time Last Intake of Fluids: 09:45 Last Intake of Fluids Comment: sip with pills otherwise before MN Date Last Intake of Solids: 10/11/24 Time Last Intake of Solids: 20:00 Past Medical History Medical History Dental caries Thyroid disease Seizures Diabetes Cleft palate Heart attack Heart disease Asthma Past Family History Family History Mother Breast cancer Hypertension Past Surgical History Surgical History Hx of hernia repair History of repair of congenital cleft palate Hx of heart artery stent x3 Social History Smoking Status: Heavy tobacco smoker Smoking cigarettes per day: 1.5 packs Do You Dip or Chew Tobacco: No Hx Alcohol Use: No Hx Substance Use: No Physical Exam Vital Signs Last Vital Signs Temp 37.0 C 10/12/24 12:29 Pulse 76 10/12/24 12:29 Resp 20 10/12/24 12:29 BP 142/90 H 10/12/24 12:29 Pulse Ox 95 10/12/24 12:29 O2 Del Method Room Air 10/12/24 12:29 Testing Laboratory Results 10/12/24 07:45 10/12/24 07:45 PT 12.1 Seconds (9.0-12.0) H 10/11/24 18:47 INR 1.1 (0.9-1.1) 10/11/24 18:47 APTT 34 Seconds (21-31) H 10/11/24 18:47 10/12/24 10/12/24 11:51 06:10 POC Glucose 136 H 125 H
[2024-10-12] MEDS ORDERED: MIDAZOLAM HCL 1 MG/ML 2ML VIAL ONE (13:42)
[2024-10-12] MEDS ORDERED: DEXAMETHASONE SOD INJ 4 MG/ML VIAL ONE (13:42)
[2024-10-12] MEDS ORDERED: PROPOFOL IV EMULSION 10 MG/ML 20 ML VIAL IV ONE (13:42)
[2024-10-12] MEDS ORDERED: fentaNYL citrate PF 100 MCG/2 ML VIAL ONE (13:42)
[2024-10-12] MEDS ORDERED: ONDANSETRON INJ 2 MG/ML 2 ML VIAL ONE (13:42)
[2024-10-12] MEDS ORDERED: LIDOCAINE 2% 2 ML VIAL/AMP(20MG/ML) INFIL ONE (13:42)
[2024-10-12] MEDS ORDERED: SUCCINYLCHOLINE CHLORIDE 20 MG/ML 10 ML VIAL IV ONE (13:44)
[2024-10-12] MEDS ORDERED: ROCURONIUM BROMIDE 10 MG/ML 5 ML VIAL IV ONE (13:44)
[2024-10-12] MEDS ORDERED: ARTIFICIAL TEARS OP OINT 3.5 GM TUBE ONE (13:56)
[2024-10-12] MEDS: BUPIVACAINE/EPINEPHRINE 0.5% 1:200,000 1.8 ML CARP ONE (14:27)
--- NOTE | 2024-10-12 15:39 | Hospitalist Progress Note ---
Date of Service October 12, 2024 Assessment & Plan (1) Dental abscess: (2) Diabetes type 2: (3) Coronary artery disease: (4) Paroxysmal A-fib: (5) Hypertension: (6) Hyperlipidemia: (7) Hypothyroidism: (8) COPD (chronic obstructive pulmonary disease): (9) GERD (gastroesophageal reflux disease): (10) BPH (benign prostatic hyperplasia): (11) Sleep apnea: Plan 59 year old male with PMH significant for DMII, hyperlipidemia, hypothyroidism, COPD, TOM, CAD/peripheral vascular disease, history of VT x4 with stent x3, PAF, HTN, GERD, BPH, history of TIA who presents to the ED today with dental pain and is being admitted for probable I&D by [facility] Dental abscess Patient seen by Dr. Morales yesterday outpatient CT neck soft tissues revealed: Heterogeneous masslike enhancement centered within the left sports official space and parotid gland measures up to approximately 5 cm with central hypodense foci measuring up to approximately 2 cm. Findings favor phlegmon with central abscess however a centrally necrotic neoplasm could appear similarly. Labs without leukocytosis, ESR is 67 Pain control with IV tylenol and dilaudid Continue IV clindamycin Consult OMFS -planned I & D on 10/12/24 Hold Eliquis and Plavix DMII On metformin and Trulicity at home - holding while inpt SSI while inpt CAD, hx VT x4 and stent x3 Hyperlipidemia Continue rosuvastatin Holding Plavix due to procedure tomorrow Paroxysmal A fib Continue metoprolol Holding Eliquis due to procedure tomorrow HTN Continue valsartan and imdur Hypothyroidism Continue levothyroxine GERD Continue pantoprazole BPH Continue tamsulosin DVT Prophylaxis: IV Heparin Code Status: FULL CODE - As per discussion at bedside with the patient. PCP: Elizabet Carranza PA-C Disposition: admit to med surg Patient seen in collaboration with Dr Baker. Please see addendum. I spent a total of 75 minutes coordinating, documenting and providing care for this patient excluding time spent in the performance of separately billed services or time spent by another provider/QHP. Admission and Anticipated Discharge Date Admission Date: October 11, 2024 Subjective Pt was seen before his surgery Swollen face, anxious to have the procedure done States pain controlled Review of Systems Review of Systems: All systems reviewed & are unremarkable except as noted in Subjective Physical Exam Physical Exam: General: Alert, oriented. No acute distress HEENT: NC/AT, left side of face swollen CV: RRR Resp: Breath sounds clear bilaterally, no increased effort of breathing Abdomen:Soft, nontender Extremities: No edema in lower extremities bilaterally. Results & Data Results & Data Vital Signs (Past 12 Hours) Vital Signs Temp Pulse Resp BP Pulse Ox O2 Del Method 10/12/24 12:29 37.0 C 76 20 142/90 H 95 Room Air 10/12/24 06:54 36.8 C 53 L 16 123/86 96 Room Air
[2024-10-12] MEDS ORDERED: SUGAMMADEX SODIUM 200 MG/2 ML VIAL IV ONE (15:53)
[2024-10-12] MEDS: ONDANSETRON INJ 2 MG/ML 2 ML VIAL IV PRN ×2 (16:36→18:43)
[2024-10-12] MEDS: fentaNYL citrate PF 100 MCG/2 ML VIAL IV PRN (16:45)
--- NOTE | 2024-10-12 17:11 | Anesthesiology Progress Note ---
Date of Service October 12, 2024 Anesthesia Post Procedure Vital Signs Vital Signs: Temp Pulse Pulse Pulse Resp BP BP 10/12/24 17:00 86 12 156/92 H 10/12/24 16:50 82 12 153/79 H 10/12/24 16:40 88 12 161/88 H 10/12/24 16:30 85 10 L 154/91 H 10/12/24 16:20 82 16 154/91 H 10/12/24 16:14 36.1 C L 81 14 139/85 10/12/24 12:29 37.0 C 76 20 142/90 H 10/12/24 06:54 36.8 C 53 L 16 123/86 10/11/24 20:00 36.9 C 76 18 152/93 H 10/11/24 18:26 36.6 C 68 16 167/108 H 10/11/24 18:23 10/11/24 17:35 71 16 155/105 H Pulse Ox O2 Del Method O2 Flow Rate 10/12/24 17:00 92 Room Air 10/12/24 16:50 92 Room Air 10/12/24 16:40 96 Room Air 10/12/24 16:30 98 Oxymask 10 10/12/24 16:20 93 Oxymask 10 10/12/24 16:14 92 Oxymask 10 10/12/24 12:29 95 Room Air 10/12/24 06:54 96 Room Air 10/11/24 20:00 96 Room Air 10/11/24 18:26 98 Room Air 10/11/24 18:23 Room Air 10/11/24 17:35 97 Room Air Pain Intensity Left Mouth: Pain Intensity: 7 Transfer of Care Handoff Completed per policy Notes Mental Status: alert / awake / arousable Patient Amnestic to Procedure: Yes Nausea / Vomiting: adequately controlled Pain: adequately controlled Airway Patency, RR, SpO2: stable & adequate BP & HR: stable & adequate Hydration State: stable & adequate Anesthetic Complications: no major complications apparent and Pt Satisfied with anesthetic care
[2024-10-12] MEDS: SURGICEL ABSORB HEMOSTAT 2IN X 14IN TOP ONE (18:36)
[2024-10-13 07:43] LABS: Hematocrit (blood only) 34.3 % (42.0-52.0); Hemoglobin 12.1 g/dl (14.0-18.0); Immature Granulocytes # (auto) 0.05 K/uL (0.01-0.20); Immature Granulocytes % (auto) 0.6 %; Lymphocytes # (auto) 0.95 K/uL (1.20-3.40); Lymphocytes % (auto) 10.8 %; Mean Corpuscular Hemoglobin 29.4 pg (25.0-34.0); Mean Corpuscular Hgb Conc 35.3 g/dL (32.0-36.0); Mean Corpuscular Volume 83.3 fL (80.0-100.0); Mean Platelet Volume 9.1 fL (9.4-12.4); Monocytes # (auto) 0.52 K/uL (0.11-0.59); Monocytes % (auto) 5.9 %; Neutrophils % (auto) 82.7 %; Platelet Count 230 K/uL (130-400); RDW Standard Deviation 36.4 fL (36.4-46.3); Red Blood Count 4.12 M/uL (4.70-6.10); White Blood Count 8.82 K/ul (4.8-10.8)
[2024-10-13 08:05] LABS: ANTI-Xa, UFH(UnfractionatedHep < 0.10 IU/ml (0.3-0.7)
[2024-10-13 08:16] LABS: Calcium 9.3 mg/dl (8.6-10.3); Creatinine Clr Calc Pharmacy 89.7 ml/min; Potassium 3.6 mmol/L (3.5-5.1)
--- NOTE | 2024-10-13 09:08 | Post Operative Brief Note ---
PG Immediate Post Op with CF Date of Surgery October 13, 2024 Pre & Post Diagnosis Operation Date: 10/12/24 08:50 Pre-Op Diagnosis: Dental Abscess Post-Op Diagnosis: Dental Abscess I identified the patient and participated in the time-out.: Yes Procedure Operation Date: 10/12/24 08:50 Actual Procedures p Incision and Drainage submandibular abcess Left Side, excision cyst upper right and lower left(Bilateral) - Shadi Morales DMD s Extraction #1 and #17, - Shadi Morales DMD Surgeon Shadi Morales, JONATHAN Residential Treatment Counselor none Estimated Blood Loss 10 Findings Consistent with Post-Op Diagnosis grossly infected left cheek and right posterior maxilla Specimens Specimen Description: 1. Submandibular abcess 2. Infection Right Maxilla A. left mandible B. Cyst of right maxilla Drains Other Complications none Disposition Accompanied Patient To Recovery: Yes
--- NOTE | 2024-10-13 09:15 | Operative Report ---
PG Post Operative Report Pre & Post Diagnosis Operation Date: 10/12/24 08:50 Pre-Op Diagnosis: Dental Abscess Post-Op Diagnosis: Dental Abscess I identified the patient and participated in the time-out.: Yes Procedure Operation Date: 10/12/24 08:50 Actual Procedures p Incision and Drainage submandibular abcess Left Side, excision cyst upper right and lower left(Bilateral) - Shadi Morales DMD s Extraction #1 and #17, - Shadi Morales DMD Surgeon Shadi Morales DMD Spike Maker none Estimated Blood Loss 10 Findings Consistent with Post-Op Diagnosis Specimens C and S Soft issue lower left and upper right Drains [place] lower left Complications none Disposition Accompanied Patient To Recovery: Yes Indications gross infection Description of Procedure Actual Procedures p Incision and Drainage Submandibular Abscess; Removal of infected # 1 and# 17 (Not Applicable) - Shadi Morales DMD D7240 X 2 (1 and 17) CPT 52574 CPT 44486 CPT 71740 K01.2 D16.5\K09.0/M27.49 K12.2 Once cleared for surgery general anesthesia was achieved, the eyes were protected by the anesthesia dept criteria. A time out was take for patient ID, antibiotics, equipment and position verification once all agreed the procedure began. Local anesthesia using Marcaine with a vasoconstrictor ( 1.8 ml per site) given into left inferior alveolar nerve and upper right sinus area A throat pack was placed after the oral cavity was irrigated with saline. Once a surgical level of anesthesia was obtained and the local anesthesia was given time for the blocks the surgery was started. I turned my attention to the infection which was located in masseter and parotid, submandibular area space. Gross swelling upper right tuberosity and mucobuccal fold. Incision and Drainage CPT 69582 Using a 15 blade an incision was made lateral to the alveolar ridge in the mucobuccal space. Once the incision was made a lot of pus extruded from the site. This drainage was cultured for anaerobic and aerobic bacteria. A curved hemostat was carefully placed into the infected space along the lateral side of the lower jaw and into the posterior masseter, submandibular spaces. Some further drainage was now allowed to escape. I palpated the cheek and submandibular area and no further drainage was expressed. The area was irrigated with at least 100 ml of NS solution. I now turned my attention to remove the infected wisdom teeth and associated radiolucent areas Pre-op= impacted and infected wisdom teeth # 1 and 17 Lower wisdom teeth CBI # 17 very difficult case D7240 and CPT 78454 There was a radiolucent area associated with the impacted tooth. The cyst was infected and perforated through the bone leading to the deep infection and resulting in the bone loss and acute infection. The full thick Muco-periosteal flap was made on the external oblique ridge to avoid the lingual nerve. The flap was reflected to expose the impacted tooth and radiolucent area. The drill with a round bur was used to remove bone, a fissure bur was used to split the tooth.The lingual plate was protected. The tooth was removed with a 301 elevator, the nerve was intact, there was some minor bleeding. The infected soft tissue was curetted. The bone was trimmed, smoothed and the flap was closed with a 2-0 chromic suture. After curettement the large defect was free of any infected soft tissue Upper wisdom teeth CBI # 1 very difficult D7240 and CPT 21166 Upper wisdom teeth CBI # 1 very difficult case There was a radiolucent area associated with the impacted tooth. The cyst was infected and perforated through the bone leading to the deep infection and resulting in the bone loss and acute infection of the right sinus floor. There was extensive infected soft tissue that caused a significant bony defect into the right sinus. Great care was used to remove the infected soft tissue without perforation into the maxillary sinus. An Incision was made over the tuberosity. The full thickness flap was ref lected, bone removed with a rongeur, the tooth was visualized, it was close to the sinus and removed with an 81 elevator upon sectioning the tooth into sections. The Bony margins were trimmed, smoothed and sutured closed with a 2-0 chromic x 2. There was no sinus involvement. When all the wisdom teeth were removed I inspected the sites to insure all bleeding was controlled. I removed the throat pack and suctioned the throat. Bilateral gauze pressure dressings were placed. All instrument and sponge count was correct. The patient was allowed to awake from the anesthesia. Once full awake the anesthesia tube was removed and the patient was taken to the recovery room with all vital sign stable. The patient tolerated the surgery very well. I will follow the patient in my office, Rx and instructions will be given upon discharge. I attest to the content of the Intraoperative Record and any orders documented therein. Any exceptions are noted below.
--- NOTE | 2024-10-13 09:36 | Surgery Progress Note ---
Date of Service October 13, 2024 Assessment & Plan Admission and Anticipated Discharge Date Admission Date: October 11, 2024 Subjective Post Op infection evaluation 24 hours The infected area is responding very well at 24 hours Swelling is decreasing and the tissue is starting to get back to normal in size and texture. No further drainage is noted. Drain functioning very well lower left Cultures and pathology pending Infection has responded very well to the antibiotics, extractions and the I and D. I requested that the patient continue with massage, heat and wound care. Huy wants to go home as he has "things to do and take care of things and can not stay" Given how well he is doing I am OK with the plan--must use heat. ice and massage. He will need to hold the apixaban until I take the drains out Wednesday morning in the office antibiotics and pain Meds e mailed to his pharmacy [place] for D/C as per medicine Results & Data Vital Signs (Past 12 Hours) Vital Signs Temp Pulse Pulse Resp BP Pulse Ox O2 Del Method 10/13/24 07:43 36.5 C 79 138/82 96 Room Air 10/13/24 03:13 37 C 86 18 153/87 H 94 Room Air 10/12/24 22:42 37 C 91 H 16 159/85 H 95 Room Air PG Care Time/CCT Total # of Minutes Spent Total Time Spent with Patient: Total time spent is greater than 50% in coordination of care (as documented) at patient's floor/unit and/or counseling patient: Coding Level of Care Code 43659 SUB INP/OBS CARE 07/08MIN
[2024-10-13 11:06] VITALS: RESP 16
[2024-10-13 11:26] VITALS: BP 137/81; PULSE 77; TEMP 97.7; O2SAT 96
--- NOTE | 2024-10-13 11:36 | Discharge Summary ---
Discharge Summary Date of Service October 13, 2024 Principal Dx & Hospital Course #1 = Principal Diagnosis (1) Dental abscess: (2) Diabetes type 2: (3) Coronary artery disease: (4) Paroxysmal A-fib: (5) Hypertension: (6) Hyperlipidemia: (7) Hypothyroidism: (8) COPD (chronic obstructive pulmonary disease): (9) GERD (gastroesophageal reflux disease): (10) BPH (benign prostatic hyperplasia): (11) Sleep apnea: Plan 59 year old male with PMH significant for DMII, hyperlipidemia, hypothyroidism, COPD, TOM, CAD/peripheral vascular disease, history of MN x4 with stent x3, PAF, HTN, GERD, BPH, history of TIA who presents to the ED today with dental pain and was admitted for I&D by [facility] Dental abscess Patient was seen by Dr. Morales the day FEED MANAGER as an outpatient CT neck soft tissue revealed: Heterogeneous masslike enhancement centered within the left dock manager space and parotid gland measures up to approximately 5 cm with central hypodense foci measuring up to approximately 2 cm. Findings favor phlegmon with central abscess however a centrally necrotic neoplasm could appear similarly. Labs without leukocytosis, ESR is 67 Pain control with IV tylenol and dilaudid Continued IV clindamycin (pt with penicillin allergy) Consulted [facility] -s/p I & D on 10/12/24 -antibiotics and pain medication on discharge per [facility] -Per [facility], hold Eliquis until followup on 10/16/24 when drains will be removed. Can continue plavix Close OMFS and pcp followup after discharge DMII On metformin and Trulicity at home - holding while inpt SSI while inpt Resume home meds after discharge CAD, hx MN x4 and stent x3 Hyperlipidemia Continue rosuvastatin Resume Plavix on discharge Paroxysmal A fib Continue metoprolol Per [facility] on discharge- Hold Eliquis until followup on 10/16/24 when drains will be removed. Can continue plavix HTN Continue valsartan and imdur Hypothyroidism Continue levothyroxine GERD Continue pantoprazole BPH Continue tamsulosin Notes For Next Care Provider As above Medication Changes From Visit Per [facility] on discharge- Hold Eliquis until followup on 10/16/24 when drains will be removed. Can continue plavix Admission HPI Per Admitting Provider 59 year old male with PMH significant for DMII, hyperlipidemia, hypothyroidism, COPD, TOM, CAD/peripheral vascular disease, history of MN x4 with stent x3, PAF, HTN, GERD, BPH, history of TIA who presents to the ED today with dental pain. He was initially seen on 09/25 at [facility] ED for left sided jaw pain and underwent a CT scan which revealed an impacted wisdom tooth on the left for which he was prescribed clindamycin. He presented to his PCP on 10/02 and was prescribed oxycodone for pain management. He reports he tried 10mg of this on 10/08 when he was on the way to [facility] ED and it provided him no pain relief. He was transferred from [place] to [place] where he saw an oral surgeon who performed an I&D. He most recently saw Dr. Morales yesterday who recommended that the patient come to the ED last evening for further imaging but patient could not present until today. Patient reports persistent pain in his left jaw rated 8/10 in severity. The pain is not relieved by tylenol or oxycodone so he has not been taking anything. He reports that he has been taking the clindamycin for approximately 8 days - noting he didn't start it when it was first prescribed because his symptoms weren't that bad yet. He also reports that he has not taken his Eliquis or Plavix since 10/08 because he figured he was going to be having a procedure in the near future. He endorses chills but has not taken his temperature to evaluate for fever and nausea which he attributes to clindamycin. He denies chest pain, SOB, abdominal pain, vomiting, diarrhea, fatigue, or weakness. He is able to eat food that is mashed up and drink without significant difficulty swallowing. Admission Exam Per Admitting Provider General/Psych: WD/WN, sitting up in bed, NAD, conversing easily, euthymic affect Head: normocephalic, atraumatic Eyes: normal inspection, PERRL, conjunctivae pink, anicteric sclerae ENT: external ear and nose normal, significant swelling and tenderness to the left jaw and face, unable to visualize inside mouth due to pain Neck: normal visual inspection, trachea midline, no thyromegaly Respiratory: normal respiratory effort, lungs clear to auscultation, no wheeze/rales/rhonchi, no accessory muscle use Cardiovascular: regular rate and rhythm, no murmur/rub/gallop, no JVD Extremities: no cyanosis or clubbing, normal peripheral pulses, no BLE edema Abdomen/GI: normal bowel sounds, soft, nontender, no hepatosplenomegaly Neurologic/MSK: A+Ox3, motor strength 5/5, moves all extremities Skin: no rashes, normal color, warm and dry Discharge Exam General: Alert, oriented. No acute distress HEENT: NC/AT, left side of face swollen CV: RRR Resp: Breath sounds clear bilaterally, no increased effort of breathing Abdomen:Soft, nontender Extremities: No edema in lower extremities bilaterally. Updated Medication List Medication Instructions Recorded Confirmed Type apixaban 5 mg tablet (Eliquis) 5 mg PO BID 10/10/24 10/11/24 History clopidogrel 75 mg tablet (Plavix) 75 mg PO DAILY 10/10/24 10/11/24 History dulaglutide 1.5 mg/0.5 mL 1.5 mg subcut WK 10/10/24 10/11/24 History subcutaneous pen injector (Trulicity) metformin 1,000 mg tablet 1,000 mg PO DAILY 10/10/24 10/11/24 History metoprolol succinate 25 mg 25 mg PO DAILY 10/10/24 10/11/24 History tablet,extended release 24 hr metronidazole 0.75 % topical gel 1 applic topical BID 10/10/24 10/11/24 History isosorbide mononitrate 30 mg 30 mg PO DAILY 10/11/24 10/11/24 History tablet,extended release 24 hr levothyroxine 200 mcg tablet 200 mcg PO QAM 10/11/24 10/11/24 History rosuvastatin 40 mg tablet 40 mg PO DAILY 10/11/24 10/11/24 History tamsulosin 0.4 mg capsule 0.4 mg PO DAILY 10/11/24 10/11/24 History valsartan 80 mg tablet 80 mg PO QAM 10/11/24 10/11/24 History clindamycin HCl 300 mg capsule 300 mg PO TID infection 10 days 10/13/24 Rx #30 caps hydrocodone 5 mg-acetaminophen 325 1 tab PO Q4H PRN pain #14 tabs 10/13/24 Rx mg tablet Hospital Stay Data Consultations 10/11/24 14:35 Consult Oromaxillofacial Surgery Stat 10/11/24 14:42 ED Decision to Admit Stat Procedures Performed Operation Date: 10/12/24 08:50 Actual Procedures p Incision and Drainage submandibular abcess Left Side, excision cyst upper right and lower left(Bilateral) - Shadi Morales DMD s Extraction #1 and #17, - Shadi Morales DMD Diagnostic Imagining Performed 10/11/24 14:16 CT neck soft tissues [CT soft tissue neck w con] Stat Soft Tissue Neck CT 10/11/24 14:16 CT soft tissue neck w con HISTORY: 59 years-old Male L mandibular abscess soft tissue swelling with possible abscess within the left mandibular tissues COMPARISON: Head CT 09/25/2024 TECHNIQUE: Multiple axial CT images of the soft tissues of the neck were obtained with IV contrast. A dose lowering technique was used consistent with the principals of ALARA. FINDINGS: The imaged intracranial structures demonstrate no acute abnormality. Orbits are within normal limits. Atherosclerotic plaque of the carotid bulbs without high- grade stenosis. Chronic appearing deformities of the perinasal tissues, nasal septum and maxilla. Unerupted left mandibular molar with probable adjacent d entigerous cyst with areas of adjacent cortical dehiscence both medially and laterally. There is an additional unerupted right maxillary tooth on image 24 series 2. This also demonstrates adjacent dentigerous cyst formation. Asymmetric enlargement with heterogeneity of the left cemented glenoid with adjacent inflammatory stranding. No thyroid nodule identified. Cervical chain lymph nodes measure up to 8 mm. There is a 3.7 x 2.4 x 5.4 cm heterogeneously enhancing focus centered within the left parotid gland on image 33 series 2 with centrally hypodense components measuring up to approximately 2 cm. The medial margin abuts the adjacent mandible and there is adjacent inflammatory stranding involving the left parotid gland and dock manager space. The lung apices appear clear. Multilevel degenerative changes of the cervical spine. Diffusely heterogeneous appearance of the bone marrow. Small right mastoid effusion. The left mastoid air cells are clear. No significant mucosal thickening of the paranasal sinuses. IMPRESSION: 1. Heterogeneous masslike enhancement centered within the left dock manager space and parotid gland measures up to approximately 5 cm with central hypodense foci measuring up to approximately 2 cm. Findings favor phlegmon with central abscess however a centrally necrotic neoplasm could appear similarly. 2. The aforementioned collection/lesion abuts the lateral cortex of the mandibular body where there is in an unerupted maxillary molar with dentigerous cyst and adjacent cortical dehiscence. Findings should be correlated clinically to exclude developing osteomyelitis. 3. Reactive left parotid and submandibular sialoadenitis with subcentimeter cervical chain lymph nodes. ACT 112: Negative or not required by law. The above report was generated using voice recognition software. It may contain grammatical, syntax or spelling errors. Electronically signed by: Leobardo Arguello M.D. 10/11/2024 4:15 PM Pending Results Patient Have Any Pending Studies at Discharge: Yes Discharge Instructions Given to Patient (Per Discharging Provider) Please continue with your plavix at home but hold your home Eliquis until you follow up with Dr Morales on 10/16/24 and have your drains removed. ADDITIONAL ACTIVITY RECOMMENDATIONS: * It is very important to keep your mouth clean to prevent infection. * Starting tonight rinse with the Peridex as directed then 2 x a day * it is very important to keep well hydrated, this prevents fever and possible dry socket pain SPECIAL CARE INSTRUCTIONS: *It is not uncommon that between day 2-4 that your swelling will be at its worst this is very normal, do not be alarmed. * Keep ice on the side of your face for the next 24 to 36 hours. This will help keep the swelling down. * After 36 hours, apply heat (hot water bottle or heating pad) for the next two days, as often as possible. * Tomorrow start rinsing your mouth with 1/2 teaspoon salt in 8 ounces warm water. This rinse should be used every 4-6 hours. * You may experience slight nausea. To prevent this, never take your medication on an empty stomach. If nauseated, take small sips of gardenia ginger until you feel better; then you may start on applesauce and toast. * A certain amount of bleeding is to be expected. It is often possible to control mild oozing by placing folded gauze over the area and biting down for 30 minutes. If you are unable to control excessive bleeding, call Dr Morales at [phone] * You may experience some discomfort for a few days. If pain or swelling increases, Call Dr Morales * Return to the office for a follow up check up on: Wednesday at 10 am for drain removal * office address--[address] phone # [phone] Total Time Total Time Spent Total Time Spent (In Minutes): 60
== END 2024-10-13 12:54 | disposition home or self-care (01) | DRG 137 ==
LOC: ED 12:58 → SUATTDRO 16:06 → 3N 16:06